=== PATIENT | female | born 1980 | race Caucasian/White ===

== ENCOUNTER 2022-02-14 05:51 | Emergency (ER) | payer OTHER | END 2022-02-14 07:05 | disposition home or self-care (01) | LOC: JP.ED 05:51 | DX: S93.492A Sprain of other ligament of left ankle, initial encounter (principal); Z88.8 Allergy status to other drugs, medicaments and biological substances; X50.1XXA Overexertion from prolonged static or awkward postures, initial encounter | CPT/HCPCS: 73610-LT; 99281; 99283 ==